=== PATIENT | female | born 1990 | race Caucasian/White ===

== ENCOUNTER → 2016-10-06 | Outpatient (CLI) | payer OTHER ==
[~2016-10-06] MED LIST: BIRTH CONTROL PILL; KEFLEX500 MG PO
--- NOTE | ~2016-10-06 | US98 ---
[facility] A Service of [facility] RADIOLOGY TEXT RESULTS PATIENT: DAVID REILLY LOCATION: [facility] : [birth year] UNIT #: [id number] AGE: [address]: Chencho Rmoo MD SEX: F ORDER DR: [id number] [facility] [address] [place], [place] [address] [id number] O MR#: [id number] Acc #: [id number] NAME: ADVID REILLY : 1990 SEX: F STUDY DATE/TIME: 10/06/2016 8:19 UNIT: [facility] ROOM: STUDY DESCRIPTION: US Pelvic Non-OB Complete Attending Physician: Chencho Romo M.D. Referring Physician: Chencho Romo M.D. Ordering Physician: Chencho Romo M.D. Primary Care Physician: Chencho Romo M.D. MEDICAL IMAGING REPORT This report is preliminary unless electronic signature is present EXAM Pelvic ultrasound INDICATION Right ovarian cyst. Unexplained weight gain recently. Follow up right adnexal cyst from 06/27/2015 pelvic ultrasound. PROCEDURE Quick-scale and Doppler imaging of the pelvis via transabdominal and transvaginal approach. COMPARISON 09/03/2015, 06/27/2015. FINDINGS Pelvic structures are not well seen transabdominally. TRANSVAGINAL: The uterus is anteverted and measures 7.5 x 3.9 x 4.7 cm. IUD positioned centrally in the endometrial cavity. Right ovary measures 1.8 x 1.8 x 2.7 cm. Left ovary measures approximately 1.6 x 2.1 x 1.6 cm. No free pelvic fluid. The endometrium measures approximately 4 mm in thickness. IMPRESSION 1. IUD in the central endometrial cavity. 2. Otherwise negative pelvic ultrasound. There is no adnexal cyst seen. Dictated by... Delta Sanchez M.D. THIS IS AN ELECTRONICALLY VERIFIED REPORT Delta Sanchez M.D. at 10/07/2016 7:05 AM [facility] A Service of [facility] RADIOLOGY TEXT RESULTS PATIENT: DAVID REILL[id number] [birth year] UNIT #: [id number] AGE: [address]: Chencho Romo MD SEX: F ORDER DR: Coreen TD: 10/06/2016 12:59 JOB #: [id number] MEDICAL IMAGING REPORT Page 1 of 1 COPY
== END | disposition home or self-care (01) ==
LOC: CWCC 08:05
DX: N83.209 Unspecified ovarian cyst, unspecified side (principal); L68.0 Hirsutism; Z97.5 Presence of (intrauterine) contraceptive device
CPT/HCPCS: 76830; 76856